=== PATIENT | male | born 1975 | race Caucasian/White ===

== ENCOUNTER → 2017-10-24 08:48 | Day surgery (SDC) | payer BC ==
--- NOTE | ~2017-10-24 | OP ---
PATIENT NAME: KASEY STODDARD MEDICAL RECORD: [id number] :77 LOCATION:[facility] ADMISSION DATE: SURGEON: YOVANI HERR MD DATE OF OPERATION: 10/24/2017 PREOPERATIVE DIAGNOSIS: End-stage renal disease, on dialysis, requiring long-term dialysis access. POSTOPERATIVE DIAGNOSIS: End-stage renal disease, on dialysis, requiring long-term dialysis access with by cardiac arrest or by bradycardia and a cardiac arrest intraoperatively. SURGEON: Yovani Herr MD ANESTHESIA: Regional block plus general with LMA, followed by intubation and CPR including the use of an external pacemaker and insertion of a temporary transvenous pacemaker. ANESTHESIOLOGIST: Brett Lorenzana MD and TUBING OILER. INTRAOPERATIVE CONSULTATION: Roshan Jones MD REFERRING PHYSICIAN: Joann Montes De Oca MD PREOPERATIVE NOTE: Kasey Stoddard is a 42-year-old white male patient with a history of coronary artery disease and mitral and tricuspid valve insufficiency. He has begun dialysis and needs long-term dialysis access and for that is brought to the operating room. At this time, I plan to create a left upper extremity AV fistula, probably a wrist Mod[place] fistula. DESCRIPTION OF PROCEDURE: After regional block anesthetic was performed, the patient was taken to the operating room and given general anesthesia with LMA, the left arm was prepped and draped in sterile manner. I used a [place] drain as a proximal venous tourniquet and applied nitroglycerin paste to the intact skin of the arm and forearm and dorsum of the hand, but then examined with duplex ultrasound and found the cephalic vein to be very suitable from the wrist to the shoulder. The radial artery at the wrist was adequate and did not demonstrate any calcifications. The tourniquet was released and the nitroglycerin paste removed as early as possible with moistened laparotomy sponges. A longitudinal incision was made at the wrist and the vein exposed and mobilized, a large tributary was divided and hemoclipped to avoid significant flow diversion and the vein was treated with topical papaverine, it was ligated distally with Vicryl and then divided and beveled. It was then flushed with heparinized saline and distended or dilated hydrostatically. The radial artery was exposed and controlled with Silastic loops. It was treated with topical papaverine as well. I made an incision about 5 mm or 6 mm in length on the radial artery and flushed it proximally and distally with heparinized saline. No other anticoagulation was utilized. The end of the vein was then sutured to the side of artery with running 7-0 Prolene. Just as I was completing this anastomosis, the patient developed a severe bradycardia with hypotension and cardiac resuscitation commenced. The loops were removed and the operation having been completed, the skin was closed with josué and a sterile dressing applied. The resuscitation went on for approximately an hour and following that the OPERATIVE REPORT [id number] RODKASEY patient was declared by anesthesia, all efforts had been made including the use of an external pacemaker and the insertion of a temporary transvenous pacemaker, numerous electric shocks, and drug interventions. There was no blood loss. Sponges, instruments, and needles were accounted for. No specimen was submitted and no drain was used. TRANSINT:[id number] Voice Confirmation ID: [id number] DOCUMENT ID: [id number] YOVANI HERR MD at 1546 CC: JOANN MONTES DE OCA MD [id number] DICTATION DATE: 10/24/17 1424 PARK KEEPER: 10/24/17 1500 DEP [facility] 10/24/17 [facility] [address] [place] [address]
[~2017-10-24 08:48] MED LIST: BAYER CHEWABLE81 MG PO; DEMADEX20 MG PO; LIPITOR40 MG PO; LISINOPRIL10 MG PO; METOLAZONE5 MG PO; NORMODYNE / TR200 MG PO; NOVOLOG100 U/M1 SC; TERAZOSIN HCL2 MG PO; TOUJEO SOL300 UNIT/1 SC
[2017-10-24 10:10] VITALS: BMI 34.7
[2017-10-24 10:22] LABS: BASOPHILS 0.4 % (0-2); EOSINOPHILS 2.7 % (0-7); HEMATOCRIT 31.4 % (42.0-54.0); IMMATURE GRANULOCYTES 0.8 % (0-5); LYMPHOCYTES 11.7 % (15-50); MCH 28.7 pg (26.0-34.0); MCHC 31.8 g/dL (31.0-37.0); MEAN PLATELET VOLUME 10.6 fL (7.4-10.4); MONOCYTES 6.7 % (2-11); NEUTROPHILS 77.7 % (40-80); PLATELET COUNT 168 10x3/uL (130-400); RBC 3.49 10x6/uL (4.20-6.10); RDW 18.1 % (11.5-14.5); WBC 11.3 10x3/uL (4.8-10.8)
[2017-10-24 10:31] LABS: ANION GAP 14.4 mmol/L (8-16); APTT 31.3 SECONDS (22.8-39.4); CALCIUM 8.5 mg/dL (8.5-10.1); CARBON DIOXIDE 23.2 mmol/L (21.0-32.0); CREATININE - SERUM 6.3 mg/dL (0.6-1.3); INR 1.18 (0.85-1.17); POTASSIUM - SERUM 3.6 mmol/L (3.5-5.1); PROTIME 14.6 SECONDS (11.6-15.0)
== END ==
LOC: D.OPS 08:48
PROVIDERS: Internal Medicine Nephrology
DX: E11.22 Type 2 diabetes mellitus with diabetic chronic kidney disease (principal); I13.2 Hypertensive heart and chronic kidney disease with heart failure and with stage 5 chronic kidney disease, or end stage renal disease; N18.6 End stage renal disease; Z99.2 Dependence on renal dialysis; I46.9 Cardiac arrest, cause unspecified; G47.30 Sleep apnea, unspecified; E66.01 Morbid (severe) obesity due to excess calories; I25.10 Atherosclerotic heart disease of native coronary artery without angina pectoris; R00.1 Bradycardia, unspecified; Z01.812 Encounter for preprocedural laboratory examination